=== PATIENT | male | born 1980 | race Caucasian/White ===

== ENCOUNTER → 2023-12-21 | Outpatient (CLI) | payer BC ==
--- NOTE | 2023-12-21 12:07 | MR ---
EXAMINATION TYPE: MR lumbar spine wo con DATE OF EXAM: 12/21/2023 COMPARISON: X-ray 03/09/2021 HISTORY: Lower back pain, BLE radiculopathy, injury 2 mos ago. TECHNIQUE: T1 and T2 axial and sagittal images of the lumbar spine are submitted. FINDINGS: There is no abnormal signal seen within the visualized spinal cord or paraspinal soft tissu es. At L1-2 there is no degenerative disc disease, disc herniation, or canal stenosis. No foraminal encro achment. At L2-3 there is no degenerative disc disease, disc herniation, or canal stenosis. No foraminal encro achment At L3-4 there is broad-based disc bulging with hypertrophic changes in the facets and ligamentum flav um. Borderline central stenosis and mild bilateral foraminal encroachment.. At L4-5 there is grade 1 anterolisthesis disc desiccation. Reactive marrow changes involving the post erior elements which could be secondary to severe facet arthropathy present stress pars injury. There is Broad-based disc protrusion with hypertrophy of facets and ligamentum flavum. Severe canal stenos is bilateral foraminal At L5-S1 there is annular tear with degenerative disc disease and broad-based small focal disc hernia tion. Mild central stenosis with mild to moderate bilateral foraminal encroachment. Facet arthropathy . IMPRESSION: 1. Broad-based disc protrusion with hypertrophic changes L4-L5. Severe canal stenosis and moderate to severe bilateral foraminal approach. Grade 1 anterolisthesis is likely degenerative. 2. Broad-based disc herniation L5-S1 with hypertrophic changes resulting in mild canal stenosis and m [id number] bilateral foraminal encroachment. 3. Disc bulging L3-L4 with borderline central stenosis and mild bilateral foraminal encroachment.
== END | disposition home or self-care (01) ==
LOC: RADMRIMAIN 10:52
PROVIDERS: ATTEND Orthopaedic Surgery
DX: M47.816 Spondylosis without myelopathy or radiculopathy, lumbar region
CPT/HCPCS: 72148

== ENCOUNTER → 2024-07-16 | Outpatient (CLI) | payer BC ==
[2024-07-16 18:40] LABS: Basophils # (A) 0.03 X 10*3/uL (0.00-0.10); Basophils % (A) 0.4 %; Eosinophils % (A) 1.3 %; HCT 44.7 % (39.6-50.0); HGB 14.8 g/dL (13.0-17.0); Lymphocytes # (A) 1.85 X 10*3/uL (0.90-5.00); Lymphocytes % (A) 23.4 %; MCH 29.1 pg (27.0-32.0); MCHC 33.1 g/dL (32.0-37.0); MCV 87.8 FL (80.0-97.0); Mean Platelet Volume 11.3 FL (9.5-12.2); Monocytes # (A) 0.86 X 10*3/uL (0.20-1.00); Monocytes % (A) 10.9 %; NRBC Per 100 WBC 0 X 10*3/uL (0.00-0.01); Neutrophils # (A) 5.06 X 10*3/uL (1.80-7.70); Neutrophils % (A) 63.7 %; Platelet Count 250 X 10*3/uL (140-440); RBC 5.09 X 10*6/uL (4.40-5.60); RDW 13.5 % (11.5-14.5); WBC 7.92 X 10*3/uL (4.50-10.00)
[2024-07-16 18:56] LABS: Potassium 4.6 mmol/L (3.5-5.5)
== END | disposition home or self-care (01) ==
LOC: LABPAT 15:29
PROVIDERS: ATTEND Orthopaedic Surgery
DX: Z01.812 Encounter for preprocedural laboratory examination (principal); G56.02 Carpal tunnel syndrome, left upper limb
CPT/HCPCS: 80051; 85025

== ENCOUNTER 2024-07-18 10:04 | Day surgery (SDC) | payer BC ==
[2024-07-16 09:05] VITALS: BMI 21.5
--- NOTE | 2024-07-17 21:16 | HP ---
HISTORY AND PHYSICAL DATE OF SURGERY: 07/18/2024. HISTORY OF PRESENT ILLNESS: Kamlesh Villarreal is a 44-year-old gentleman seen with symptomatic left carpal tunnel syndrome. We discussed options regarding treatment. He elected to proceed with decompression of left median nerve. Consent was obtained. PAST MEDICAL HISTORY: Crohn disease. PAST SURGICAL HISTORY: Noncontributory. DAILY MEDICATIONS: None. ALLERGIES: None reported. SOCIAL HISTORY: Smokes cigarettes. PHYSICAL EVALUATION OF THE LEFT HAND: He has a positive carpal compression and carpal Tinel's exacerbating numbness and tingling throughout the median nerve distribution. There is good perfusion distally. He has a good radial pulse present. IMAGING STUDIES: Radiographs of the left hand and wrist failed to reveal any osseous abnormality. An EMG of the upper extremities revealed carpal tunnel syndrome. IMPRESSION: Left carpal tunnel syndrome. PLAN: Decompression of the left median nerve. MMODL / IJN: [id number] /
[~2024-07-18 10:04] MED LIST: HYDROmorphone 0.5 MG/0.5 ML SYRINGE IVP PRN; MIDAZOLAM 2 MG/2 ML VIAL IV PRN; SCOPOLAMINE 1 MG/72 HR PATCH TRANSDERM ONE
[2024-07-18] MEDS: IV FLUID CONTINUATION 1,000 ML IV ONE (10:25)
[2024-07-18] MEDS: DEXAMETHASONE SOD PHOSPHATE 4 MG/ML 1 ML VIAL IV ONE (10:46)
[2024-07-18] MEDS: ONDANSETRON 4 MG/2 ML VIAL IVP ONE (10:46)
[2024-07-18] MEDS: LACTATED RINGERS 1,000 ML IV SCH (10:47)
[2024-07-18 10:52] VITALS: TEMP 98
[2024-07-18] MEDS ORDERED: PROPOFOL 10 MG/ML 20 ML VIAL IV ONE (11:55)
[2024-07-18] MEDS ORDERED: LIDOCAINE 1% INJ 10MG/ML (20 ML MDV) ONE (11:55)
[2024-07-18] MEDS ORDERED: fentaNYL (PF) 50 MCG/ML 2 ML AMP ONE (11:55)
[2024-07-18] MEDS ORDERED: MIDAZOLAM 2 MG/2 ML VIAL ONE (11:55)
[2024-07-18] MEDS: BUPIVACAINE (PF) 0.25% 30 ML VIAL SQ ONE ×3 (12:05)
--- NOTE | 2024-07-18 12:26 | P.OP ---
Date of Procedure: 07/18/24 Preoperative Diagnosis: Left carpal tunnel syndrome Postoperative Diagnosis: Left carpal tunnel syndrome Procedure(s) Performed: Decompression left median nerve Anesthesia: MAC Surgeon: Peter Cox Estimated Blood Loss (ml): 0 Pathology: none sent Condition: stable Disposition: PACU Indications for Procedure: 44-year-old patient seen with symptomatic left carpal tunnel syndrome. After having treatment options discussed, he elected to proceed with decompression left median nerve. Operative Findings: See description of procedure Description of Procedure: Patient was taken to the operative suite. He received preoperative IV antibiotics. A well-padded tourniquet placed proximal left upper extremity. He received IV sedation by the department of anesthesia. Left upper extremity prepped and draped in the normal sterile fashion. We infiltrated the proposed incision site with 8 cc quarter percent plain Marcaine. Once sufficient local analgesia was noted the extremity is elevated and tourniquet insufflated to 250. I now made an incision beginning at the distal volar wrist crease extending distally approximately 3 cm in line with the fourth metacarpal sharply through skin. I dissected down to the transverse carpal ligament. I made a small loni through the transverse carpal ligament. I now released Transverse carpal ligament both proximally and distally with blunt Metzenbaums. There was complete release of the transverse carpal ligament and good decompression of the nerve. The wound was irrigated. There was good hemostasis.. The tourniquet was released with immediate capillary refill of all digits. A sterile Rahul bandage was applied. The patient was now awakened, transferred to recovery in stable and satisfactory condition having tolerated procedure well.
[2024-07-18 12:38] VITALS: BP 112/66; PULSE 66; RESP 16
== END 2024-07-18 13:06 | disposition home or self-care (01) ==
LOC: OR 10:04
PROVIDERS: ATTEND Orthopaedic Surgery
DX: G56.02 Carpal tunnel syndrome, left upper limb (principal); K50.90 Crohn's disease, unspecified, without complications; F17.210 Nicotine dependence, cigarettes, uncomplicated
CPT/HCPCS: 64721; J2250; J1100; J0690; J2405; J2003; J3010; J2704; J0665